=== PATIENT | male | born 2000 | race Caucasian/White ===

== ENCOUNTER 2019-04-09 22:11 | Inpatient (IN) | payer OTHER ==
[~2019-04-09] VITALS: Ht 182.9 cm; Wt 81.6 kg
[2019-04-12] MEDS ORDERED: AMOX1TAB5 PO (15:40)
== END 2019-04-12 16:23 | disposition home or self-care (01) | DRG 343 ==
LOC: ER 22:11 → SEC-K 04-10 05:16 → O/R 04-10 07:25 → SURH 04-10 10:24
PROVIDERS: ADMIT Surgery
PROC: BW21ZZZ Computerized Tomography (CT Scan) of Abdomen and Pelvis (ICD-10-PCS; 2019-04-10)
PROC: 0DTJ0ZZ Resection of Appendix, Open Approach (ICD-10-PCS; principal; 2019-04-10 07:15)
DX: K35.890 Other acute appendicitis without perforation or gangrene (principal)